=== PATIENT | female | born 1970 | race Caucasian/White ===

== ENCOUNTER → 2016-12-14 | Day surgery (SDC) | payer BC, MEDICARE ==
[~2016-12-14] MED LIST: ACETAMINOPHEN PO; ACETAMINOPHEN500 M7 PO; ACYCLOVIR15 G1 TOP; ADDERALL 30 MG30 M1 PO; ADDERALL PO; ALLEGRA PO; ALLERCLEAR10 MG PO; ALPRAZOLAM PO; AMBIEN PO; AMBIEN10 MG PO; AMBIEN12.5 MG PO; AYR50 ML; BIOTIN2500 MCG PO; BUPROPION XL300 M1 PO; BUSPAR PO; BUSPAR30 MG PO; CLARITIN D PO; CLARITIN10 M3 PO; CYMBALTA PO; DEMADEX PO; DEMADEX10 MG PO; DIPHENHYDRAMINE50 M1 PO; DOCUSATE SODIU100 MG PO; DOXEPIN HCL50 M1 PO; DOXEPIN HCL50 MG PO; FIBER0.52 GM PO; FIBER1 TAB.CHEW PO; FISH OIL 1,0001 EAC1 PO; FISH OIL 1,0001 EAC3 PO; FLEXERIL PO; FLEXERIL10 MG PO; FLONASE 0.05% N16 G1; GARCINIA CAMBO1 EACH PO; GREEN TEA EXT1000 GM PO; IBUPROFEN PO; IBUPROFEN800 MG PO; IRON325 MG PO; LAXATIVE5 M1 PO; LEVAQUIN PO; LINZESS145 MCG PO; LIPITOR PO; LORTAB 7.5-5001 TAB PO; MELATONIN 5 MG1 EACH PO; MELATONIN PO; MELATONIN10 M1 PO; MIRALAX17 GM PO; MOTRIN400 MG PO; MULTI VITAMIN1 EACH PO; MULTI-VITAMIN1 EAC1 PO; MYLANTA400 MG PO; NAPROSYN500 MG PO; NAPROXEN PO; NAPROXEN250 MG PO; NEOSYNEPHRINE; NEXIUM PO; NILSTAT; PEPCID AC20 M2 PO; PEPCID40 MG PO; PERCOGESIC; PHENERGAN PO; PHENERGAN25 M1 PO; PHENERGAN25 MG PO; PREVACID SOLUTA30 M1 PO; PROAIR HFA8.5 GM INH; PROAIR RESPICL90 MCG INH; PROTONIX PO; PROZAC PO; RASPBERRY KETO100 MG PO; RASPBERRY KETONE; REMERON15 MG PO; RISPERDAL1 M1 PO; RISPERDAL2 MG PO; ROZEREM8 MG PO; SENNA-LAX8.6 M1 PO; SIMVASTATIN40 MG PO; SINGULAIR PO; SINGULAIR5 MG; STIOLTO RESPIMAT4 GM INH; TAGAMET200 MG; TIZANIDINE HCL4 M1 PO; TOPAMAX PO; TRAZODONE PO; TUMS PO; TUMS500 MG PO; TYLENOL325 M1 PO; ULTRAM PO; VITAMIN D10000 UNIT PO; VITAMIN D250000 UNIT PO; WELLBUTRIN PO; WELLBUTRIN-SR100 M1 PO; XANAX2 MG PO; ZANAFLEX4 M1 PO; ZANTAC PO; ZANTAC150 M1 PO; ZANTAC150 MG PO; ZOCOR PO; ZOCOR80 MG PO; ZOFRAN ODT4 MG PO; ZOFRAN PO; [UNRECOGNIZED DRUG - CODE]; [UNRECOGNIZED DRUG - OTHER]; [UNRECOGNIZED DRUG - OTHER]; [UNRECOGNIZED DRUG - OTHER] PO; [UNRECOGNIZED DRUG - OTHER] PO
--- NOTE | ~2016-12-14 | OR ---
Unit #: [id number] #: [id number] Patient: PAULETTE WOODSON [id number] [address] [place], [place] [address] [id number] O MR#: [id number] NAME: PAULETTE WOODSON ROOM: Date of Procedure: 12/14/2016 Admission Date: 12/14/2016 Surgeon: Chintan Headley M.D. : 1970 Attending Physician: Chintan Headley M.D. Primary Care Physician: Jovan Paul M.D. OPERATIVE REPORT PREOPERATIVE DIAGNOSIS Reflux symptoms resistant to medications. POSTOPERATIVE DIAGNOSIS Reflux symptoms resistant to medications. PROCEDURES PERFORMED 1. Esophagogastroduodenoscopy. 2. Biopsy of antrum for Helicobacter pylori testing. ANESTHESIA Monitored anesthesia care. FINDINGS The patient was found to have a medium-sized hiatal hernia and mild gastritis. A biopsy was obtained for Helicobacter pylori testing with good hemostasis. SPECIMENS Sent to pathology. COMPLICATIONS None apparent. CONDITION The patient tolerated the procedure well. INDICATIONS FOR PROCEDURE The patient is a 46-year-old white female, who previously had a laparoscopic band. It was removed after she had a problem with her port. She did well however and loss quite a bit of weight. She has developed worsening reflux symptoms resistant to medications. She presents at this time for evaluation by upper endoscopy. DESCRIPTION OF PROCEDURE After obtaining informed consent, the patient was brought to the endoscopy suite and after adequate monitored anesthesia care, had the endoscope placed through the mouth into the upper esophagus under direct vision. It was slowly advanced to the level of the duodenum without difficulty with the lumen always in view. The duodenum was normal as was the duodenal bulb. The pylorus opened normally. There was some mild distal gastritis present and a biopsy was obtained for Helicobacter pylori testing. On Unit #: [id number] #: [id number] Patient: PAULETTE WOODSON retroflexion back to the GE junction, the patient was found to have a medium-sized hiatal hernia. No other abnormalities were found in the proximal third, middle third, or incisura. On pulling back above the GE junction, there was no stenosis, stricture, or neoplasm seen. There was no significant esophagitis. The remaining portion of the esophagus was within normal limits. Laryngeal structures were grossly normal as viewed from above. The patient tolerated the procedure well and went from the endoscopy suite to recovery area in stable condition. RECOMMENDATIONS Gastroesophageal reflux sheet given. Call tomorrow for pathology and to discuss results. May need a 24-hour pH probe, esophageal motility, and manometry studies. Dictated by... Chintan Headley M.D. SHAKIRA/ofelia TD: 12/14/2016 23:19 JOB #: [id number] CC: [facility] OPERATIVE REPORT Page 1 of 1 X Chintan Headley MD X PROCEDURE OPERATIVE NOTE
== END | disposition home or self-care (01) ==
LOC: COPS 11:14
PROVIDERS: Surgery
PROC: 0DB78ZX Excision of Stomach, Pylorus, Via Natural or Artificial Opening Endoscopic, Diagnostic (ICD-10-PCS; principal; 2016-12-14 13:00)
DX: K29.70 Gastritis, unspecified, without bleeding (principal); K44.9 Diaphragmatic hernia without obstruction or gangrene; K21.9 Gastro-esophageal reflux disease without esophagitis; E78.00 Pure hypercholesterolemia, unspecified; J44.9 Chronic obstructive pulmonary disease, unspecified; I50.9 Heart failure, unspecified; F41.9 Anxiety disorder, unspecified; F17.200 Nicotine dependence, unspecified, uncomplicated; F32.9 Major depressive disorder, single episode, unspecified; J30.9 Allergic rhinitis, unspecified; Z78.0 Asymptomatic menopausal state; Z79.899 Other long term (current) drug therapy; Z98.890 Other specified postprocedural states; Z87.440 Personal history of urinary (tract) infections; Z87.19 Personal history of other diseases of the digestive system; Z91.5 Personal history of self-harm; Z88.1 Allergy status to other antibiotic agents; Q89.9 Congenital malformation, unspecified; Z82.49 Family history of ischemic heart disease and other diseases of the circulatory system; Z83.42 Family history of familial hypercholesterolemia; Z81.8 Family history of other mental and behavioral disorders; Z82.61 Family history of arthritis; Z82.62 Family history of osteoporosis
CPT/HCPCS: 84703; 87077; J2250

== ENCOUNTER → 2017-01-23 | Outpatient (CLI) | payer BC, MEDICARE ==
--- NOTE | ~2017-01-23 | NM22 ---
[facility] A Service [facility] RADIOLOGY TEXT RESULTS PATIENT: KRISTIE DRAKE ANN LOCATION: [facility] : 74 UNIT #: [id number] AGE: [address]: Michael Quesada MD SEX: F ORDER DR: [id number] [facility] [place], [place] [address] [id number] O MR#: [id number] Acc #: [id number] NAME: KRISTIE DRAKE : 1970 SEX: F STUDY DATE/TIME: 01/23/2017 11:48 UNIT: [facility] ROOM: STUDY DESCRIPTION: ALIDA Hepatobiliary W GB Pharm Attending Physician: Michael Quesada M.D. Referring Physician: Michael Quesada M.D. Ordering Physician: Michael Quesada M.D. Primary Care Physician: Washington Marks M.D. MEDICAL IMAGING REPORT This report is preliminary unless electronic signature is present EXAM Radionuclide biliary scan, 01/23/17. HISTORY Abdominal pain. FINDINGS Following intravenous administration of 5.9 mCi technetium-99m Choletec, static images of the abdomen were obtained at 15 minute intervals over 60 minutes. The patient then received 1.4 mcg Kinevac by 30 minute intravenous infusion. Images obtained before and after Kinevac infusion. Region of interest drawn around the gallbladder and gallbladder ejection fraction calculated. There is homogeneous distribution of radiotracer throughout the liver at 15 minutes post-administration. Radiotracer seen in gallbladder at 15 minutes post-administration and in common bile duct and small bowel within 30 minutes post-administration. During the initial hour of the examination, the radiotracer accumulates in the gallbladder and small bowel. With intravenous infusion of Kinevac, the 30 minute gallbladder ejection fraction is 75.3%. Normal is greater than or equal to 30%. IMPRESSION 1. Normal study. There is no evidence of cystic duct obstruction or acute cholecystectomy. 2. Kinevac stimulated 30 minute gallbladder ejection fraction is 75.3%. Normal is greater than or equal to 30%. [facility] A Service [facility] RADIOLOGY TEXT RESULTS PATIENT: KRISTIE DRAKE LOCATION: [facility] : 74 UNIT #: [id number] AGE: [address]: Michael Quesada MD SEX: F ORDER DR: Dictated by... Michael Beatty M.D. THIS IS AN ELECTRONICALLY VERIFIED REPORT Michael Beatty M.D. at 01/24/2017 5:57 PM RAYRAY/parker TD: 01/23/2017 18:43 JOB #: [id number] MEDICAL IMAGING REPORT Page 1 of 1 COPY
--- NOTE | ~2017-01-23 | US6 ---
[facility] A Service of [facility] & [facility] RADIOLOGY TEXT RESULTS PATIENT: KRISTIE DRAKE ANN LOCATION: [facility] : 74 UNIT #: [id number] AGE: [address]: Michael Quesada MD SEX: F ORDER DR: [id number] [facility] [address] [place], [place] [address] [id number] O MR#: [id number] Acc #: [id number] NAME: KRISTIE DRAKE : 1970 SEX: F STUDY DATE/TIME: 01/23/2017 10:49 UNIT: [facility] ROOM: STUDY DESCRIPTION: US Abdominal Limited Attending Physician: Michael Quesada M.D. Referring Physician: Michael Quesada M.D. Ordering Physician: Michael Quesada M.D. Primary Care Physician: Washington Marks M.D. MEDICAL IMAGING REPORT This report is preliminary unless electronic signature is present EXAM Right upper quadrant ultrasound, 01/23/2017 HISTORY Right upper quadrant abdominal pain for 10 years with gastroesophageal reflux disease. FINDINGS Ultrasound examination of the gallbladder is negative. There is no cholelithiasis, gallbladder wall thickening, or bile duct dilatation. The visualized liver is negative. IMPRESSION Negative gallbladder ultrasound examination. Dictated by... Dilan Leger M.D. THIS IS AN ELECTRONICALLY VERIFIED REPORT Dilan Leger M.D. at 01/25/2017 8:21 AM JOSE MARTIN/allan TD: 01/23/2017 14:49 JOB #: [id number] MEDICAL IMAGING REPORT Page 1 of 1 COPY
== END | disposition home or self-care (01) ==
LOC: CGUS 10:15
DX: R29.2 Abnormal reflex (principal); R10.9 Unspecified abdominal pain
CPT/HCPCS: 76705; 78227; A9537; J2805

== ENCOUNTER → 2017-01-30 | Outpatient (CLI) | payer BC, MEDICARE ==
--- NOTE | ~2017-01-30 | CR265 ---
[facility] A Service of [facility] & [facility] RADIOLOGY TEXT RESULTS PATIENT: KRISTIE LOPEZ LOCATION: [facility] : 74 UNIT #: [id number] AGE: [address]: Michael Quesada MD SEX: F ORDER DR: [id number] [facility] [address] [place], [place] [address] [id number] O MR#: [id number] Acc #: [id number] NAME: KRISTIE LOPEZ. : 1970 SEX: F STUDY DATE/TIME: 01/30/2017 10:19 UNIT: [facility] ROOM: STUDY DESCRIPTION: CR Upper GI Series Wo KUB Attending Physician: Michael Quesada M.D. Referring Physician: Michael Quesada M.D. Ordering Physician: Michael Quesada M.D. Primary Care Physician: Washington Marks M.D. MEDICAL IMAGING REPORT This report is preliminary unless electronic signature is present EXAM Upper GI 01/30/2017. INDICATIONS 46-year-old female with history of chronic reflux. History of multiple abdominal surgeries including placement and subsequent removal of a Lap-Band. COPD, shortness of breath, tobacco abuse over 25 years. History of congestive heart failure. Chronic reflux that is getting worse with daytime heartburn and nausea. Currently on medication for reflux. Symptoms began 2 years ago. TECHNIQUE Multiple spot fluoroscopic views of the esophagus, stomach and duodenum were obtained in various projections after the patient ingested gas crystals and thick and thin liquid barium on 01/30/2017. COMPARISON 01/13/2015 FINDINGS Notes indicate 4.1 minutes of fluoroscopy time was used in the case. 64 images from the procedure were saved to the DR PACS system. The esophagus demonstrates an unremarkable primary stripping wave. No significant secondary or tertiary contractions identified. No focal esophageal mass, stricture or mucosal abnormality. There is a small intermittently visualized hiatal hernia present. There was incomplete distension of the stomach that accounts for mild prominence of the rugal fold pattern. The stomach is otherwise unremarkable. Portions were obscured by contrast within the duodenal sweep and superimposed small bowel. Duodenal bulb and duodenal sweep appear within normal limits. No significant reflux was identified despite [facility] A Service of [facility] & [facility] RADIOLOGY TEXT RESULTS PATIENT: KRISTIE LOPEZ LOCATION: [facility] : 74 UNIT #: [id number] AGE: [address]: Michael Quesada MD SEX: F ORDER DR: maneuvers designed to elicit reflux in the patient. IMPRESSION 1. There is a small hiatal hernia. No significant associated gastroesophageal reflux or evidence of reflux associated stricture. 2. Examination is otherwise essentially negative. Incomplete distension of the stomach accounting for mild prominence of the rugal fold pattern. This could less likely represent mild generalized gastritis. Correlate with patient presentation. 3. Notes indicate 4.1 minutes of fluoroscopy time was used in the case. 64 images were saved from the procedure to the PACS system. Dictated by... Jeet Peraza M.D. THIS IS AN ELECTRONICALLY VERIFIED REPORT Jeet Peraza M.D. at 01/30/2017 5:23 PM Jamar TD: 01/30/2017 16:31 JOB #: [id number] MEDICAL IMAGING REPORT Page 1 of 1 COPY
== END | disposition home or self-care (01) ==
LOC: CRAD 10:13
DX: K21.9 Gastro-esophageal reflux disease without esophagitis (principal); K44.9 Diaphragmatic hernia without obstruction or gangrene; K31.89 Other diseases of stomach and duodenum
CPT/HCPCS: 74240

== ENCOUNTER → 2017-03-29 | Outpatient (CLI) | payer BC, MEDICARE ==
--- NOTE | ~2017-03-29 | EKG ---
PATIENT: KRISTIE LOPEZ UNIT #: [id number] Ventricular Rate: 85 BPM Atrial Rate: 85 BPM P-R Interval: 136 ms QRS Duration: 64 ms Q-T Interval: 402 ms QTC Calculation(Bezet): 478 ms P [place]: 25 degrees Calculated R [place]: 71 degrees Calculated T [place]: 21 degrees Diagnosis Line: Normal sinus rhythm Diagnosis Line: Normal ECG Diagnosis Line: No previous ECGs available Diagnosis Line: Confirmed by DONAVON PRATER MD ([id number]) on 03/31/2017 Diagnosis Line: 8:22:08 AM INTERPRETING MD: JOSI GRIFFIN
[2017-03-29 15:47] LABS: HEMATOCRIT 36.7 % (35.0-45.0); HEMOGLOBIN 11.9 gm/dL (12.0-16.0); MEAN CELL VOLUME 88.2 FL (83-96); MEAN CORPUSCULAR HEMOGLOBIN 28.7 PG (28-34); MEAN CORPUSCULAR HGB CONC 32.5 g/dL (30-36); MEAN PLATELET VOLUME 7.7 FL (6.5-11.5); RED BLOOD COUNT 4.16 X10e (3.90-5.30); RED CELL DISTRIBUTION WIDTH 13.8 % (11.0-15.5); WHITE BLOOD COUNT 5.4 X10e3 (4.0-10.5)
[2017-03-29 16:12] LABS: URINE APPEARANCE CLEAR; URINE BILIRUBIN NEG (NEG); URINE BLOOD NEG (NEG); URINE COLOR YELLOW; URINE GLUCOSE NORM (NORM); URINE KETONE 1+ (NEG); URINE LEUKOCYTE ESTERASE NEG (NEG); URINE NITRATE NEG (NEG); URINE PROTEIN NEG (NEG); URINE SPECIFIC GRAVITY 1.015 (1.003-1.035); URINE UROBILINOGEN NORM (NORM)
[2017-03-29 16:14] LABS: URINE SOURCE CLEAN CATCH
[2017-03-29 16:21] LABS: BUN/CREATININE RATIO 15.83; CALCIUM SERUM 9.2 mg/dL (8.4-10.2); CREATININE SERUM 1.2 mg/dL (0.6-1.4); GLOM FILT RATE Estimated 54.5 mL/min (>60); POTASSIUM 3.2 mmol/L (3.5-5.1)
== END | disposition home or self-care (01) ==
LOC: CAMB 14:00
PROVIDERS: Surgery
DX: Z01.818 Encounter for other preprocedural examination (principal)
CPT/HCPCS: 36415; 80048; 81003; 85027; 93005

== ENCOUNTER → 2017-04-06 | Day surgery (SDC) | payer BC, MEDICARE ==
--- NOTE | ~2017-04-06 | OR ---
Unit #: [id number] #: [id number] Patient: KRISTIE LOPEZ [id number] [place], [place] [address] [id number] O MR#: [id number] NAME: KRISTIE LOPEZ ROOM: Date of Procedure: 04/06/2017 Admission Date: 04/06/2017 Surgeon: Michael Quesada M.D. : 1970 Attending Physician: Michael Quesada M.D. Primary Care Physician: Washington Marks M.D. OPERATIVE REPORT PREOPERATIVE DIAGNOSES 1. Chronic gastroesophageal reflux disease. 2. hiatal hernia. PROCEDURE PERFORMED Laparoscopic Anny fundoplication. [employer] Brodie Christian M.D. ANESTHESIA General anesthesia. ESTIMATED BLOOD LOSS Minimal. IV FLUIDS 900 of crystalloid. COMPLICATIONS None. INDICATIONS The patient is a 47-year-old lady, who has had multiple operations in her gastric region consisting of lap band, and removal with lap band erosion. She presents with persistent gastroesophageal reflux disease, as diagnosed per pH probe and manometry. She also has a hiatal hernia per EGD. She presents for laparoscopic Anny. DESCRIPTION OF PROCEDURE The patient was taken to the operating theater and placed in supine position. General anesthesia was induced. Abdomen was prepped and draped. A 10-mm Visiport was then placed left of the midline without difficulty. Abdomen was insufflated to 15 mmHg of CO2. She was placed in reverse Trendelenburg. I placed a left upper quadrant 10 mm, left lower quadrant 5 mm, a Oj liver retractor in the right upper quadrant 5 mm. General inspection of the area around the stomach revealed adhesions, but most of these were filmy adhesions that were easily taken down. I then dissected the plane between the liver and the right crura. I took down the hepatogastric ligament. We then carried this anterior taking down the phrenicoesophageal ligament exposing the hernia. I identified Unit #: [id number] #: [id number] Patient: KRISTIE LOPEZ the angle of His. I then exposed the right and left crura identifying the hernia. I took down the short gastrics from mid fundus proximal using the Harmonic Scalpel. I then repaired the hernia posterior with two interrupted [id number] sutures of 0-Ethibond. This created a snug repair, which allowed placement of my instruments between the esophagus and the diaphragm without difficulty. I then created a wrap using the fundus of the stomach pulled posterior to the esophagus. I created a 2.5 cm wrap, which was affixed anteriorly with three interrupted 0 Ethibond sutures with a central suture gathering at the anterior portion of the esophagus with care taken to avoid the vagus nerve. Hemostasis was adequate. I saw no other abnormalities. The ports were removed under direct vision. The wound was closed with 4-0 Vicryl. The patient tolerated the procedure and sent to the recovery room in good condition. Dictated by... Oleg Hilliard/ofelia TD: 04/08/2017 02:53 JOB #: [id number] OPERATIVE REPORT Page 1 of 1 X Michael Quesada MD X PROCEDURE OPERATIVE NOTE
== END | disposition home or self-care (01) ==
LOC: CSUR 08:20
DX: K21.9 Gastro-esophageal reflux disease without esophagitis (principal); K44.9 Diaphragmatic hernia without obstruction or gangrene; J44.9 Chronic obstructive pulmonary disease, unspecified; I50.9 Heart failure, unspecified; F17.210 Nicotine dependence, cigarettes, uncomplicated; Z88.1 Allergy status to other antibiotic agents; Z88.8 Allergy status to other drugs, medicaments and biological substances; Z98.84 Bariatric surgery status; Z98.890 Other specified postprocedural states
CPT/HCPCS: 84132; J0330; J0690; J2250; J2405; J2710; J3010